=== PATIENT | male | born 1985 | race Caucasian/White ===

== ENCOUNTER 2020-07-22 16:26 | Emergency (ER) | payer OTHER ==
[2020-07-22 16:32] VITALS: BP 153/82; PULSE 116; RESP 18; TEMP 99.1
[2020-07-22] MEDS ORDERED: DIPH,PERTUS(ACELL)TETVAC-LF 0.5 ML VIAL IM ONE (16:42)
[2020-07-22] MEDS ORDERED: BACITRACIN OINT 1 EACH PACKET TOPICAL ONE (16:43)
--- NOTE | 2020-07-22 17:26 | XR ---
EXAMINATION TYPE: XR finger LT DATE OF EXAM: 07/22/2020 COMPARISON: NONE HISTORY: Laceration of the thumb TECHNIQUE: 3 views FINDINGS: I see no fracture nor dislocation. Joint spaces are normal. There is no sign of a foreign b regi. IMPRESSION: Negative left thumb exam.
--- NOTE | 2020-07-22 17:27 | ED ---
Wound/Laceration HPI - General Chief Complaint: Wound/Laceration Stated Complaint: L Hand Injury Time Seen by Provider: 07/22/20 16:34 Source: patient Mode of arrival: ambulatory Limitations: no limitations - History of Present Illness Initial Comments: Patient is a 34-year-old male presenting to the emergency Department with complaints of a laceration to his left thumb. Patient states about an hour prior to arrival he was using a table saw when it went down and his thumb was in a way and he cut the lateral aspect of his left thumb near the metacarpal. Patient denies being on blood thinners. He states he is not up-to-date with his tetanus shot. Bleeding is controlled at this time with a towel. He has no further complaints at this time. - Related Data Allergies Allergy/AdvReac Type Severity Reaction Status Date / Time No Known Allergies Allergy Verified 07/22/20 16:32 Review of Systems ROS Statement: Those systems with pertinent positive or pertinent negative responses have been documented in the HPI. ROS Other: All systems not noted in ROS Statement are negative. Past Medical History Past Medical History: No Reported History History of Any Multi-Drug Resistant Organisms: None Reported Additional Past Surgical History / Comment(s): jaw, left arm Past Psychological History: No Psychological Hx Reported Smoking Status: Never smoker Past Alcohol Use History: None Reported Past Drug Use History: Unable to Obtain General Exam - General Exam Comments Initial Comments: GENERAL: Patient is well-developed and well-nourished. Patient is nontoxic and in no acute distress. HEAD: Atraumatic, normocephalic. EYES: Pupils equal round and reactive to light, extraocular movements intact, sclera anicteric, conjunctiva are normal. Eyelids were unremarkable. ENT: Nares patent, oropharynx clear without exudates. Moist mucous membranes. NECK: Normal range of motion, supple without lymphadenopathy or JVD. LUNGS: Unlabored respirations. Breath sounds clear to auscultation bilaterally and equal. No wheezes rales or rhonchi. HEART: Regular rate and rhythm without murmurs, rubs or gallops. ABDOMEN: Soft, nontender, normoactive bowel sounds. No guarding, no rebound. No masses appreciated. : Deferred MUSCULOSKELETAL: Patient has full range of motion of his left thumb. There is no swelling. He is neurovascular intact. No clubbing or cyanosis. PSYCH: Normal mood, normal affect. SKIN: Warm, Dry, normal turgor, no rashes. Patient has a 3 cm avulsion injury to the skin, to his left thumb over the metacarpal joint. There is no active bleeding. Limitations: no limitations Course Vital Signs 07/22/20 16:30 Temperature 99.1 F Pulse Rate 116 H Respiratory 18 Rate Blood Pressure 153/82 O2 Sat by Pulse 96 Oximetry Procedures - Procedures Initial comment: Patient's wound on left thumb was cleaned, topical antibiotic was applied as well as a bandage. No active bleeding. Patient tolerated procedure well. Medical Decision Making - Medical Decision Making Patient is a 34-year-old male presenting with a 3 cm avulsion injury involving the superficial skin of the left thumb after he pulled down a table saw about an hour prior to arrival. X-rays reveal no acute fractures of the thumb. We did u pdate patient's tetanus today. Patient's wound was cleaned, topical antibiotic was applied and bandage applied over. There is no active bleeding. Patient is stable for discharge. We discussed wound care. He is in agreement with this plan of care. Disposition Clinical Impression: Laceration of left thumb Disposition: HOME SELF-CARE Condition: Stable Instructions (If sedation given, give patient instructions): Acute Wound Care (ED) Additional Instructions: Please return to the Emergency Department if symptoms worsen or any other concerns. Keep area clean and dry. Keep wound covered until scab is present. Apply topical antibiotic once a day. Is patient prescribed a controlled substance at d/c from ED?: No Referrals: None,Stated [Primary Care Provider] - 1-2 days
== END 2020-07-22 17:30 | disposition home or self-care (01) ==
LOC: EC 16:26
DX: S61.012A Laceration without foreign body of left thumb without damage to nail, initial encounter (principal); Z23 Encounter for immunization; W31.2XXA Contact with powered woodworking and forming machines, initial encounter
CPT/HCPCS: 90471; 90715; 99283

== ENCOUNTER 2021-12-26 23:15 | Emergency (ER) | payer OTHER ==
[2021-12-27] MEDS ORDERED: IBUPROFEN 400 MG TAB PO STA (00:05)
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
[2021-12-27 00:17] VITALS: RESP 22
--- NOTE | 2021-12-27 00:36 | XR ---
EXAM: XR Right Shoulder Complete, 2 or More Views CLINICAL HISTORY: ITS.REASON XR Reason: trauma TECHNIQUE: Two or more views of the right shoulder. COMPARISON: No previous study. FINDINGS: Bones/joints: Findings compatible with marked shoulder separation at the right acromial clavicular joint with a 1 cm avulsion injury. Right shoulder joint is intact. Regional ribs and the scapula and soft tissues are unremarkable. Soft tissues: Soft tissues lung about the right acromial clavicular joint. IMPRESSION: 1. Marked right shoulder separation with an acute avulsion fracture with a 1 cm osseous fragment located inferiorly at the distal aspect of the right clavicle. 2. Right shoulder joint is intact.
--- NOTE | 2021-12-27 00:37 | XR ---
EXAM: XR Right Clavicle Complete, 2 or More Views CLINICAL HISTORY: ITS.REASON XR Reason: trauma TECHNIQUE: Frontal and lordotic views of the right clavicle. COMPARISON: No previous studies. FINDINGS: Bones/joints: Right shoulder separation and a 1 cm avulsion fracture at the inferior aspect of the lateral right clavicle. Right shoulder joint is intact. Right scapula is unremarkable. Regional ribs and soft tissues are unremarkable. No dislocation. Soft tissues: See above. IMPRESSION: 1. Marked right shoulder separation. 2. Avulsion fracture located at the inferior aspect of the lateral right clavicle. 3. Right shoulder joint is intact.
[2021-12-27 01:58] VITALS: BP 126/76; PULSE 90; TEMP 98
== END 2021-12-27 01:51 | disposition home or self-care (01) ==
LOC: EC 23:15
DX: S42.001A Fracture of unspecified part of right clavicle, initial encounter for closed fracture (principal); F17.200 Nicotine dependence, unspecified, uncomplicated; V86.95XA Unspecified occupant of 3- or 4- wheeled all-terrain vehicle (ATV) injured in nontraffic accident, initial encounter
CPT/HCPCS: 99284

== ENCOUNTER → 2022-01-21 | Outpatient (CLI) | payer OTHER ==
--- NOTE | 2022-01-21 14:33 | XR ---
EXAMINATION TYPE: XR shoulder complete RT DATE OF EXAM: 01/21/2022 COMPARISON: 12/27/2021 HISTORY: Pain TECHNIQUE: Shoulder examined in 3 injections FINDINGS: The humeral head articulates with the glenoid. There continues to be complete separation of the distal clavicle from the acromion. A fracture fragme nt remains inferior to the distal clavicle. Alignment and position is unchanged from the prior examin ation. Humeral head articulates with the glenoid. A follow up study can be performed 7-10 days from acute trauma for continued pain. IMPRESSION: 1. Grade 3 separation right acromioclavicular junction. A fracture fragment lies inferior to the dist al clavicle, findings are unchanged from 12/27/2021.
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
== END | disposition home or self-care (01) ==
LOC: RADXRMAIN 14:07
PROVIDERS: ATTEND Family Medicine
DX: M19.011 Primary osteoarthritis, right shoulder (principal)

== ENCOUNTER → 2022-03-09 | Outpatient (CLI) | payer OTHER ==
--- NOTE | 2022-03-09 07:54 | CT ---
EXAMINATION TYPE: CT shoulder RT wo con DATE OF EXAM: 03/09/2022 COMPARISON: Right shoulder and clavicle x-rays December 27, 2021 and January 21, 2022 HISTORY: Dislocation of right acromioclavicular joint with 100-200% displacement CT DLP: 319.20 mGycm Automated exposure control for dose reduction was used. FINDINGS: Redemonstration of superior displacement of the distal clavicle relative to the acromion measuring ap proximately 1.4 cm coronal image 34. This approaches within 3 mm of the skin surface sagittal image 3 6 with soft tissue prominence at this level noted. There are multiple small ossific fragments in the soft tissue inferior to the clavicle from the mid to distal portion with approximately 10 ossific fra gments identified. Donor site uncertain as inferior margin of clavicle is intact. Most lateral triang le shaped ossific fragment axial image 32 corresponds to x-ray finding likely from the acromion or po ssibly inferior distal clavicle measuring near 9 mm in size. Glenohumeral joint is maintained. Remainder of scapula is otherwise intact. Sternoclavicular joint is preserved. Muscle bulk is maintained. Visualized ribs are intact. Visualized right lung is clear. IMPRESSION: Significant AC joint separation and fragmentation as detailed above.
== END | disposition home or self-care (01) ==
LOC: RADCTMAIN 06:36
PROVIDERS: ATTEND Orthopaedic Surgery Orthopaedic Trauma
DX: S43.121A Dislocation of right acromioclavicular joint, 100%-200% displacement, initial encounter (principal)